=== PATIENT | male | born 1935 | race Caucasian/White ===

== ENCOUNTER 2016-12-02 19:27 | Emergency (ER) | payer MEDICARE, BC ==
[2016-12-02] MEDS ORDERED: LIDOCAINE 2% URO-JET 5 ML KIT MM ONE (20:21)
--- NOTE | 2016-12-02 20:26 | ER Document Report ---
ED Medical Screen (RME) - General Chief Complaint: Urinary Retention Stated Complaint: URINARY ISSUE Notes: Patient says he has not urinated since about 11:30 AM this morning. He says just a drop or 2 is coming out. He had this problem once about 10 years ago, but has not had any recent problems. He is not on any new medications. Did not take any ysqp-[id number] medications except for an [id number]-cod-[id number] "enhancing pill" yesterday morning. Patient is visiting to our area. Denies knowledge of any cardiac problems. His EKG shows a wandering pacemaker with a heart rate of 137. Patient is a cigarette smoker. TRAVEL OUTSIDE OF THE [place] IN LAST 30 DAYS: No - Related Data Allergies/Adverse Reactions: oxycodone Allergy (Verified 12/02/16 20:16) Past Medical History Renal/ Medical History: Denies: Hx Peritoneal Dialysis Physical Exam - Vital signs Vitals: Temp Pulse Resp BP Pulse Ox 97.4 F 52 L 16 149/82 H 94 12/02/16 20:07 12/02/16 20:07 12/02/16 20:07 12/02/16 20:07 12/02/16 20:07 Course - Vital Signs Vital signs: Temp Pulse Resp BP Pulse Ox 97.4 F 52 L 16 149/82 H 94 12/02/16 20:07 12/02/16 20:07 12/02/16 20:07 12/02/16 20:07 12/02/16 20:07
[2016-12-02 21:18] LABS: HEMATOCRIT 51.9 % (37.9-51.0); HEMOGLOBIN 17.3 g/dL (13.5-17.0); MEAN CORPUSCULAR HEMOGLOBIN 30.2 pg (27.0-33.4); MEAN CORPUSCULAR HGB CONC 33.3 g/dL (32.0-36.0); MEAN CORPUSCULAR VOLUME 91 fl (80-97); RED BLOOD COUNT 5.72 10^6/uL (4.35-5.55); RED CELL DISTRIBUTION WIDTH 18.1 % (11.5-14.0); WHITE BLOOD COUNT 23.4 10^3/uL (4.0-10.5)
[2016-12-02 21:30] LABS: ALANINE AMINOTRANSFERASE 23 U/L (21-72); ALBUMIN 4.7 g/dL (3.5-5.0); ALKALINE PHOSPHATASE 58 U/L (38-126); ANION GAP 16 (5-19); ASPARTATE AMINO TRANSFERASE 24 U/L (17-59); BILIRUBIN,DIRECT 0.2 mg/dL (0.0-0.4); BLOOD UREA NITROGEN 23 mg/dL (7-20); CALCIUM 10.3 mg/dL (8.4-10.2); CARBON DIOXIDE 27 mmol/L (22-30); CHLORIDE 96 mmol/L (98-107); CREATININE RESULT 1.14 mg/dL (0.52-1.25); GLUCOSE 111 mg/dL (75-110); POTASSIUM 4.4 mmol/L (3.6-5.0); SODIUM 139.2 mmol/L (137-145); TOTAL PROTEIN 7.6 g/dL (6.3-8.2)
[2016-12-02 21:31] LABS: BAND NEUTROPHILS % (MANUAL) 4 % (3-5); BASOPHILS % (MANUAL) 0 % (0-2); EOSINOPHILS % (MANUAL) 1 % (0-6); LYMPHOCYTES % (MANUAL) 10 % (13-45); TOTAL CELLS COUNTED 100
[2016-12-02 21:32] LABS: AMORPHOUS SEDIMENT,URINE TRACE /HPF; APPEARANCE,URINE CLEAR; BILIRUBIN,URINE NEGATIVE (NEGATIVE); GLUCOSE, URINE NEGATIVE (NEGATIVE); KETONES,URINE NEGATIVE (NEGATIVE); LEUKOCYTE ESTERASE,URINE NEGATIVE (NEGATIVE); NITRITE,URINE NEGATIVE (NEGATIVE); PROTEIN,URINE 30 mg/dL (NEGATIVE); URINE SPECIFIC GRAVITY 1.012; UROBILINOGEN,URINE NEGATIVE mg/dL (<2.0)
[2016-12-02 21:34] LABS: ANISOCYTOSIS SLIGHT; OVALOCYTES SLIGHT; PLATELET CLUMPS PRESENT; POIKILOCYTOSIS SLIGHT; SCHISTOCYTES SLIGHT
[2016-12-02] MEDS ORDERED: IPRATROPIUM/ALBUTEROL 0.5-2.5 MG/3 ML AMPUL NEB ONE (21:35)
--- NOTE | 2016-12-02 21:37 | ER Document Report ---
ED GI/ - General Chief Complaint: Urinary Retention Stated Complaint: URINARY ISSUE Mode of Arrival: Ambulatory Information source: Patient Notes: Patient presents stating that he was not able to urinate since 11:30 this morning. Patient was seen in triage and orders were placed for a Alvarado catheter. Patient states now he feels much better and denies any complaints. Patient states that he has had a previous episode of urinary retention 10 years ago after having a surgical procedure. Patient denies any fever, abdominal pain , chest pain, or back pain. Patient states that his heart rate was fast initially when he checked in because he was in so much pain from not being able to void. TRAVEL OUTSIDE OF THE [place] IN LAST 30 DAYS: No - HPI Patient complains to provider of: Urinary retention - Urinary Onset: This morning Timing/Duration: Gradual Severity at maximum: Severe Pain Level: Denies Associated symptoms: Urinary retention. denies: Chest pain, Diarrhea, Dysuria, Fever, Loss of appetite, Nausea, Vomiting Exacerbated by: Denies Relieved by: Denies Similar symptoms previously: Yes Recently seen / treated by doctor: No - Related Data Allergies/Adverse Reactions: oxycodone Allergy (Verified 12/02/16 20:16) Past Medical History - General Information source: Patient - Social History Smoking Status: Current Every Day Smoker Chew tobacco use (# tins/day): No Frequency of alcohol use: None Drug Abuse: None Occupation: retired Family History: Reviewed & Not Pertinent Patient has suicidal ideation: No Patient has homicidal ideation: No - Past Medical History Cardiac Medical History: Reports: Hx Hypercholesterolemia, Hx Hypertension Pulmonary Medical History: Reports: Hx COPD Renal/ Medical History: Denies: Hx Peritoneal Dialysis Surgical Hx: Negative - Immunizations Hx Diphtheria, Pertussis, Tetanus Vaccination: Yes Review of Systems - Review of Systems Constitutional: No symptoms reported EENT: No symptoms reported Cardiovascular: No symptoms reported. denies: Chest pain, Palpitations, Dizziness Respiratory: No symptoms reported. denies: Cough, Short of breath Gastrointestinal: Abdominal pain - Initially before having catheter placed. denies: Vomiting Genitourinary: Retention Male Genitourinary: No symptoms reported Musculoskeletal: No symptoms reported. denies: Back pain Skin: No symptoms reported Hematologic/Lymphatic: No symptoms reported Neurological/Psychological: No symptoms reported Physical Exam - Vital signs Vitals: Temp Pulse Resp BP Pulse Ox 97.4 F 52 L 16 149/82 H 94 12/02/16 20:07 12/02/16 20:07 12/02/16 20:07 12/02/16 20:07 12/02/16 20:07 - General General appearance: Appears well, Alert In distress: None - HEENT Head: Normocephalic, Atraumatic Eyes: Normal Nasal: Normal Mouth/Lips: Normal Neck: Normal, Supple. No: Lymphadenopathy - Respiratory Respiratory status: No respiratory distress Chest status: Nontender Breath sounds: Wheezing Chest palpation: Normal - Cardiovascular Rhythm: Regular Heart sounds: S1 appreciated, S2 appreciated Murmur: No - Abdominal Inspection: Normal Distension: No distension Bowel sounds: Normal Tenderness: Nontender Organomegaly: No organomegaly - Back Back: Normal, Nontender. No: CVA tenderness - Extremities General upper extremity: Normal inspection, Normal strength General lower extremity: Normal inspection, Normal strength - Neurological Neuro grossly intact: Yes Cognition: Normal [place]im[place] Coma Scale Eye Opening: Spontaneous [place] Coma Scale Verbal: Oriented [place] Coma Scale Motor: Obeys Commands [place] Coma Scale Total: 15 - Psychological Associated symptoms: Normal affect, Normal mood - Skin Skin Temperature: Warm Skin Moisture: Dry Skin Color: Normal Course - Re-evaluation Re-evalutation: 12/02/16 22:28 Patient resting comfortably, denies any complaints at this time. Provider inquired to patient why he had EKG and cardiac testing performed because during the interview at no time did patient complain of any respiratory, chest or back complaints. Patient's initial vital signs upon check-in or normal. Patient states that whenever he got here he was having so much pain because he could not void that his heart rate is a little fast at that time. Consulted with Dr. Black regarding patient presentation and diagnostic evaluation. Agrees with plan for discharge. Advises outpatient follow-up with his primary doctor for further evaluation of leukocytosis as well as urinary retention. 12/02/16 22:31 Patient states that he is not having any respiratory symptoms. Patient states that he has no complaints at this time. Patient would like to have the catheter converted to a leg bag and he plans to see his doctor on Sunday for a recheck. Patient declines needing a nebulizer treatment or chest x-ray at this time. - Vital Signs Vital signs: Temp Pulse Resp BP Pulse Ox 97.4 F 72 18 131/61 H 94 12/02/16 20:07 12/02/16 23:54 12/02/16 23:54 12/02/16 23:54 12/02/16 23:54 12/02/16 22:[address] Black, agrees with discharge plan of care. Patient continues to deny any complaints at this time states he feels much better now that he is able to empty his bladder. - Laboratory Result Diagrams: 12/02/16 20:51 12/02/16 20:51 Laboratory results interpreted by me: 12/02/16 12/02/16 12/02/16 20:51 20:51 20:51 WBC 23.4 H RBC 5.72 H Hgb 17.3 H Hct 51.9 H RDW 18.1 H Lymphocytes % (Manual) 10 L Abs Neuts (Manual) 18.7 H Abs Monocytes (Manual) 2.1 H Chloride 96 L BUN 23 H Glucose 111 H Calcium 10.3 H Urine Protein 30 H Urine Blood MODERATE H 12/02/16 22:32 Labs- Entire Visit 12/02/16 12/02/16 12/02/16 20:51 20:51 20:51 WBC 23.4 H RBC 5.72 H Hgb 17.3 H Hct 51.9 H MCV 91 MCH 30.2 MCHC 33.3 RDW 18.1 H Plt Count 358 Total Counted 100 Seg Neutrophils % Not Reportable Seg Neuts % (Manual) 76 Band Neutrophils % 4 Lymphocytes % Not Reportable Lymphocytes % (Manual) 10 L Monocytes % Not Reportable Monocytes % (Manual) 9 Eosinophils % Not Reportable Eosinophils % (Manual) 1 Basophils % Not Reportable Basophils % (Manual) 0 Absolute Neutrophils Not Reportable Abs Neuts (Manual) 18.7 H Absolute Lymphocytes Not Reportable Abs Lymphs (Manual) 2.3 Absolute Monocytes Not Reportable Abs Monocytes (Manual) 2.1 H Absolute Eosinophils Not Reportable Absolute Eos (Manual) 0.2 Absolute Basophils Not Reportable Abs Basophils (Manual) 0.0 Clumped Platelets PRESENT Platelet Comment ADEQUATE Poikilocytosis SLIGHT Anisocytosis SLIGHT Ovalocytes SLIGHT Schistocytes SLIGHT Sodium 139.2 Potassium 4.4 Chloride 96 L Carbon Dioxide 27 Anion Gap 16 BUN 23 H Creatinine 1.14 Est GFR ( Amer) > 60 Est GFR (Non-Af Amer) > 60 Glucose 111 H Calcium 10.3 H Total Bilirubin 1.0 Direct Bilirubin 0.2 Indirect Bilirubin Not Reportable Neonat Total Bilirubin Not Reportable AST 24 ALT 23 Alkaline Phosphatase 58 CK-MB (CK-2) 0.98 Troponin I 0.016 Total Protein 7.6 Albumin 4.7 Urine Color Urine Appearance Urine pH Ur Specific [place] Urine Protein Urine Glucose (UA) Urine Ketones Urine Blood Urine Nitrite Urine Bilirubin Urine Urobilinogen Ur Leukocyte Esterase Urine WBC (Auto) Urine RBC (Auto) Squamous Epi Cells Auto Amorphous Sediment Auto Urine Mucus (Auto) Urine Ascorbic Acid 12/02/16 20:51 WBC RBC Hgb Hct MCV MCH MCHC RDW Plt Count Total Counted Seg Neutrophils % Seg Neuts % (Manual) Band Neutrophils % Lymphocytes % Lymphocytes % (Manual) Monocytes % Monocytes % (Manual) Eosinophils % Eosinophils % (Manual) Basophils % Basophils % (Manual) Absolute Neutrophils Abs Neuts (Manual) Absolute Lymphocytes Abs Lymphs (Manual) Absolute Monocytes Abs Monocytes (Manual) Absolute Eosinophils Absolute Eos (Manual) Absolute Basophils Abs Basophils (Manual) Clumped Platelets Platelet Comment Poikilocytosis Anisocytosis Ovalocytes Schistocytes Sodium Potassium Chloride Carbon Dioxide Anion Gap BUN Creatinine Est GFR ( Amer) Est GFR (Non-Af Amer) Glucose Calcium Total Bilirubin Direct Bilirubin Indirect Bilirubin Neonat Total Bilirubin AST ALT Alkaline Phosphatase CK-MB (CK-2) Troponin I Total Protein Albumin Urine Color YELLOW Urine Appearance CLEAR Urine pH 7.0 Ur Specific [place] 1.012 Urine Protein 30 H Urine Glucose (UA) NEGATIVE Urine Ketones NEGATIVE Urine Blood MODERATE H Urine Nitrite NEGATIVE Urine Bilirubin NEGATIVE Urine Urobilinogen NEGATIVE Ur Leukocyte Esterase NEGATIVE Urine WBC (Auto) 2 Urine RBC (Auto) 9 Squamous Epi Cells Auto <1 Amorphous Sediment Auto TRACE Urine Mucus (Auto) RARE Urine Ascorbic Acid NEGATIVE 12/02/16 23:37 12/03/16 01:15 12/03/16 01:17 - EKG Interpretation by Al EKG shows normal: Sinus rhythm Rate: Tachycardia Rhythm: PVC's Discharge - Discharge Clinical Impression: Urinary retention, History of COPD Leukocytosis Qualifiers: Leukocytosis type: unspecified Qualified Code(s): D72.829 - Elevated white blood cell count, unspecified Condition: Stable Disposition: HOME, SELF-CARE Instructions: Urinary Retention ([facility]), Alvarado Catheter Care ([facility]), Leukocytosis ([facility]) Additional Instructions: Return immediately for any new or worsening symptoms Followup with your primary care provider, call tomorrow to make a followup appointment Follow-up with your primary doctor on Sunday for recheck and to remove your Alvarado catheter. Your bloodwork showed that your white blood cell test was elevated today. Your primary doctor can repeat your blood work and further evaluate this. Return for any fever or any concerning signs of infection. Referrals: [facility] [Provider Group] - Follow up as needed [facility] [Provider Group] - 12/04/16
[2016-12-02 21:40] LABS: CREATINE KINASE MB 0.98 ng/mL (<4.55); TROPONIN I 0.016 ng/mL
[2016-12-02 23:05] VITALS: BP 131/61
--- NOTE | 2016-12-03 16:57 | EKG REPORT ---
SEVERITY:- ABNORMAL ECG - SINUS TACHYCARDIA MULTIFORM VENTRICULAR PREMATURE COMPLEXES LAD, CONSIDER LAFB OR INFERIOR INFARCT CONSIDER ANTEROSEPTAL INFARCT : Confirmed by: Lois Choi MD 03-Dec-2016 16:57:21
--- NOTE | 2016-12-03 16:57 | EKG REPORT ---
SEVERITY:- ABNORMAL ECG - WANDERING PACEMAKER VENTRICULAR PREMATURE COMPLEX LAD, CONSIDER LAFB OR INFERIOR INFARCT CONSIDER ANTEROSEPTAL INFARCT : Confirmed by: Lois Choi MD 03-Dec-2016 16:57:33
== END 2016-12-02 23:55 | disposition home or self-care (01) ==
LOC: ER 19:27
DX: R33.9 Retention of urine, unspecified (principal); D72.829 Elevated white blood cell count, unspecified; J44.9 Chronic obstructive pulmonary disease, unspecified; R39.198 Other difficulties with micturition; F17.200 Nicotine dependence, unspecified, uncomplicated
CPT/HCPCS: 93005; 99284; 51702; 36415; 87086; 82553; 85025; 80053; 81001; 84484; 93010; A9270; J3490